=== PATIENT | female | born 1990 | race Caucasian/White ===

== ENCOUNTER 2019-08-24 15:57 | Emergency (ER) | payer BC, SELFPAY ==
[2019-08-24 16:30] VITALS: BP 128/82; PULSE 120; RESP 18; TEMP 39.3; O2SAT 100
--- NOTE | 2019-08-24 16:49 | ED.GENADULT ---
HPI - General Adult General Chief complaint: Upper Respiratory Infection Stated complaint: Flu like symptoms Time Seen by Provider: 08/24/19 16:50 Source: patient Mode of arrival: ambulatory Limitations: no limitations History of Present Illness HPI narrative: 28-year-old female presents the [facility] with complaints of cold symptoms for the past 4 days. Patient states she has had fevers as high as 103. Patient states she has had body aches, chills and just overall aches and pains been feeling very weak and lethargic. Patient states that she did not get a flu shot this year. Patient denies any chest pain or shortness of breath at this time. Patient denies breast-feeding or at this time. Related Data Home Medications Medication Instructions Recorded Confirmed No Home Medications 08/24/19 08/24/19 Allergies Allergy/AdvReac Type Severity Reaction Status Date / Time No Known Allergies Allergy Verified 08/24/19 16:43 Review of Systems Review of Systems: Narrative: CONSTITUTIONAL: Positive fever, body aches, chills, and sweats. EYES: Denies visual changes, redness, or discharge. ENT: Positive rhinorrhea, congestion, denies sore throat, or otalgia. CARDIOVASCULAR: Denies chest pain, palpitations, or edema. RESPIRATORY: Denies cough or dyspnea. GASTROINTESTINAL: Denies abdominal pain, nausea, vomiting, or diarrhea. GENITOURINARY: Denies dysuria or hematuria. SKIN: Denies rash or itching. MUSCULOSKELETAL: Denies back pain, joint pain, or myalgia. NEUROLOGIC: Denies headache, numbness, positive lethargy and weakness. PSYCHIATRIC: Denies anxiety or depression. PMFSH Comments At the time of my signature I agree with nursing past medical history, surgical, social, and family history. There is no relevant family history pertinent to the presenting complaint. Exam Narrative: Exam Narrative: GENERAL: ill-appearing, well-nourished, and in no acute distress. HEAD: Normocephalic, atraumatic. No tenderness noted to frontal and maxillary sinuses on palpation EYES: PERRLA and EOMI. ENT: Nares with erythema and edema noted bilaterally, no rhinorrhea or epistaxis. Mucous membranes moist. Posterior pharynx with no erythema, tonsil enlargement, exudates or lesions present. Bilateral TMs are clear with no erythema or foreign bodies in the canal. NECK: Supple. No lymphadenopathy CHEST: Clear to auscultation. No respiratory distress. HEART: Regular rate and rhythm. No murmur heard. Normal peripheral pulses. ABDOMEN: Soft, nontender, nondistended, normal active bowel sounds. EXTREMITIES: Normal range of motion. No edema. SKIN: Warm, dry, no rash. NEURO: No focal deficits. Alert and oriented x3. Course Vital Signs Vital signs: Vital Signs Temperature 39.3 C H 08/24/19 16:30 Pulse Rate 120 H 08/24/19 16:30 Respiratory Rate 18 08/24/19 16:30 Blood Pressure 128/82 08/24/19 16:30 Pulse Oximetry 100 08/24/19 16:30 Temperature 39.3 C H 08/24/19 16:30 Pulse Rate 120 H 08/24/19 16:30 Respiratory Rate 18 08/24/19 16:30 Blood Pressure 128/82 08/24/19 16:30 Pulse Oximetry 100 08/24/19 16:30 Vital signs reviewed. Medical Decision Making Differential Diagnosis Differential Diagnosis: Differential diagnosis: Allergic rhinitis, chronic sinusitis, tonsillitis, acute sinusitis, infectious mononucleosis, seasonal influenza, pertussis, diphtheria, meningococcal disease, viral syndrome, viral bronchitis, RSV. Notified patient that she is positive today for influenza A. Discussed with her that she is outside of the timeframe to receive antivirals. Discussed with patient that her treatments are to be [id number] Tylenol and ibuprofen for the fevers aches pains and chills. Discussed with her she needs to increase her fluid intake as well as get plenty of rest. Patient verbalized understanding denies any other questions or concerns at this time. Vital Signs Vital Signs: Vital Signs Temperature 39.3 C
== END 2019-08-24 17:16 | disposition home or self-care (01) ==
PROVIDERS: Emergency Provider Nurse Practitioner Family; PCP Nurse Practitioner Adult Health
DX: J10.1 Influenza due to other identified influenza virus with other respiratory manifestations (principal)
CPT/HCPCS: 87804; 99213; G0463